=== PATIENT | female | born 1990 | race Caucasian/White ===

== ENCOUNTER 2019-01-14 05:20 | Inpatient (IN) | payer MEDICAID ==
[~2019-01-14] VITALS: Ht 152.4 cm; Wt 57.7 kg
[2019-01-14] MEDS ORDERED: CEFAZOLIN 2 GM/50 ML (PMX) 50 ML IVPB SCH (06:00)
[2019-01-14] MEDS ORDERED: MISOPROSTOL 200 MCG TAB PR PRN ×2 (06:00→08:00)
[2019-01-14] MEDS ORDERED: OXYTOCIN 30 UNITS/LR 500 ML IV SCH (06:00)
[2019-01-14] MEDS ORDERED: CARBOPROST 250 MCG INJ IM PRN (06:00)
[2019-01-14] MEDS ORDERED: METHYLERGONOVINE 0.2 MG INJ IM PRN (06:00)
[2019-01-14] MEDS ORDERED: OXYTOCIN 30 UNITS/LR 500 ML IV PRN (06:00)
[2019-01-14] MEDS ORDERED: morphine SULFATE/PF (10 MG/10 ML) INJ ONE (07:41)
[2019-01-14] MEDS ORDERED: FENTAnyl 50 MCG/ML VIAL ONE (07:41)
[2019-01-14] MEDS ORDERED: ONDANSETRON 4 MG INJ ONE (07:48)
[2019-01-14] MEDS ORDERED: DEXAMETHASONE 4 MG/ML 1 ML INJ ONE (07:48)
[2019-01-14] MEDS ORDERED: PHENYLephrine (100 MCG/ML) 10ML SYG ONE (07:48)
[2019-01-14] MEDS ORDERED: LACTATED RINGER'S 1,000 ML IV SCH (07:49)
[2019-01-14] MEDS ORDERED: NA PHOSPHATE/BIPHOS 133 ML ENEMA PR PRN (08:00)
[2019-01-14] MEDS ORDERED: OXYCODONE/ACETAMINOPHEN (5/325) TAB PO PRN (08:00)
[2019-01-14] MEDS ORDERED: LANOLIN HPA 1 PKT TOP PRN (08:00)
[2019-01-14] MEDS: SENNA/DOCUSATE NA (8.6MG/50MG) TAB PO SCH ×2 (09:00→20:49)
[2019-01-14] MEDS ORDERED: ZOLPIDEM 5 MG TAB PO PRN (09:00)
[2019-01-14] MEDS ORDERED: NALOXONE (0.4 MG/ML) INJ IV PRN (09:00)
[2019-01-14] MEDS ORDERED: DIPHENHYDRAMINE 50 MG INJ IV PRN (09:00)
[2019-01-14] MEDS ORDERED: HYDROmorphONE 0.5 MG/0.5 ML SYG IV PRN ×2 (09:00)
[2019-01-14] MEDS ORDERED: ONDANSETRON 4 MG INJ IV PRN (09:00)
[2019-01-14] MEDS: KETOROLAC 30 MG INJ IV PRN ×2 (11:12→17:22)
[2019-01-14 11:30] VITALS: BP 91/54; PULSE 59; RESP 18
[2019-01-14] MEDS: IBUPROFEN 600 MG TAB PO SCH ×2 (12:00→18:00)
[2019-01-14 12:30] VITALS: BP 96/63; PULSE 77; RESP 18
[2019-01-14 16:53] VITALS: BP 108/61; PULSE 74; RESP 18
[2019-01-14] MEDS: LACTATED RINGER'S 1,000 ML IV SCH ×3 (17:21→21:33)
[2019-01-14 19:50] VITALS: BP 99/59; PULSE 69; RESP 20
[2019-01-14] MEDS: PHENYTOIN 100 MG CAP PO SCH (20:49)
[2019-01-15 03:56] VITALS: BP 102/64; PULSE 90; RESP 19
[2019-01-15] MEDS: KETOROLAC 30 MG INJ IV PRN (04:39)
[2019-01-15] MEDS: IBUPROFEN 600 MG TAB PO SCH ×4 (06:00→17:55)
[2019-01-15 08:30] VITALS: BP 103/58; PULSE 91; RESP 18
[2019-01-15] MEDS: SENNA/DOCUSATE NA (8.6MG/50MG) TAB PO SCH ×2 (10:53→20:26)
[2019-01-15] MEDS: OXYCODONE/ACETAMINOPHEN (5/325) TAB PO PRN ×2 (11:30→17:55)
[2019-01-15 16:55] VITALS: BP 105/56; PULSE 82; RESP 18
[2019-01-15 20:00] VITALS: BP 105/59; PULSE 75; RESP 19
[2019-01-15] MEDS: PHENYTOIN 100 MG CAP PO SCH (20:26)
[2019-01-16] MEDS: IBUPROFEN 600 MG TAB PO SCH ×3 (00:07→12:22)
[2019-01-16 04:00] VITALS: BP 99/58; PULSE 78; RESP 18
[2019-01-16 08:15] VITALS: BP 104/54; PULSE 79; RESP 16
[2019-01-16] MEDS: SENNA/DOCUSATE NA (8.6MG/50MG) TAB PO SCH (09:14)
[2019-01-17] MEDS ORDERED: DIPHTH/TET/ACEL PERTUSS (ADULT) 0.5 ML VIAL IM* ONE (09:00)
[2019-01-17] MEDS ORDERED: MEASLES,MUMPS,RUBELLA VACCINE INJ SC* ONE (09:00)
== END 2019-01-16 14:17 | disposition home or self-care (01) | DRG 784 ==
LOC: L-D 05:20 → PP1 11:33
PROVIDERS: ADMIT Specialist; ATTEND Specialist
PROC: 0UB70ZZ Excision of Bilateral Fallopian Tubes, Open Approach (ICD-10-PCS; 2019-01-14)
PROC: 10D00Z1 Extraction of Products of Conception, Low, Open Approach (ICD-10-PCS; principal; 2019-01-14 07:30)
DX: O34.219 Maternal care for unspecified type scar from previous cesarean delivery (principal); O99.354 Diseases of the nervous system complicating childbirth; G40.909 Epilepsy, unspecified, not intractable, without status epilepticus; Z3A.38 38 weeks gestation of pregnancy; Z37.0 Single live birth; Z30.2 Encounter for sterilization
CPT/HCPCS: 85025; 85610; 85730; 86592; 86850; 86900; 86901; 87340; 99464; J0690; J1100; J1170; J1200; J1885; J2274; J2370; J2405; J2590; J3010; J7120